=== PATIENT | female | born 1990 | race Two or more races ===

== ENCOUNTER 2018-01-17 23:54 | Emergency (ER) | payer MEDICAID ==
[~2018-01-17] VITALS: Ht 157.5 cm; Wt 77.1 kg
[2018-01-18 01:54] LABS: Urine Pregnacy Test Negative (Negative)
[2018-01-18 01:56] LABS: Urine Bacteria MANY /hpf (None Seen); Urine Blood Negative /uL (Negative); Urine Mucus FEW (None Seen); Urine Specific Gravity 1.021 (1.001-1.035); Urine WBC 4 /hpf (0 - 5)
[2018-01-18 02:03] LABS: Alcohol, Urine < 3.0 mg/dL (0-5); Amphetamine Screen, Urine NEGATIVE (NEGATIVE); Barbiturate Scree,Urine NEGATIVE (NEGATIVE); Benzodiazephine Screen, Urine NEGATIVE (NEGATIVE); Cannabinoid Screen, Urine NEGATIVE (NEGATIVE); Cocaine Screen, Urine NEGATIVE (NEGATIVE); Opiate Scree,Urine NEGATIVE (NEGATIVE); Phencyclidine Screen, Urine NEGATIVE (NEGATIVE)
[2018-01-18 02:16] LABS: Basophils # (auto) 0.1 uL; Basophils % (auto) 1.1 % (0.0-2.0); Eosinophils # (auto) 0.2 uL; Eosinophils % (auto) 2.5 % (0.0-7.0); Hematocrit 38.8 % (36.0-46.0); Hemoglobin 13.1 g/dL (12.2-16.2); Lymphocytes # (auto) 1.8 uL; Lymphocytes % (auto) 19.4 % (10.0-50.0); Mean Corpuscular Hemoglobin 29.6 pg (28.0-32.0); Mean Corpuscular Hgb Conc. 33.9 g/dL (32.0-36.0); Mean Corpuscular Volume 87.5 fL (80.0-100.0); Monocytes # (auto) 0.9 uL; Monocytes % (auto) 9.4 % (0.0-12.0); Neutrophils # (auto) 6.4 uL; Neutrophils % (auto) 67.6 % (37.0-80.0); Nucleated Red Blood Cells % 0.1 %; Platelet Count (auto) 249 10^3/uL (140-450); Red Blood Cells 4.44 10^6/uL (4.0-5.20); Red Cell Distribution Width 12.5 % (11.8-14.3); White Blood Cell 9.5 10^3/uL (4.4-10.8)
[2018-01-18 02:35] LABS: Alanine Aminotransferase 26 U/L (13-56); Anion Gap 9 (5-15); Aspartate Aminotransferase 17 U/L (15-37); BUN/Creatinine Ratio 11.6; Blood Alcohol < 3.0 mg/dL (0-5); Blood Urea Nitrogen 8 mg/dL (7-18); Calcium 8.3 mg/dL (8.5-10.1); Carbon Dioxide 23 mmol/L (21-32); Chloride 108 mmol/L (98-107); GFR African American 132 mL/min; GFR Non-African American 109 mL/min; Glucose 91 mg/dL (74-106); Magnesium 2.2 mg/dL (1.6-2.6); Potassium 3.3 mmol/L (3.5-5.1); Salicylate < 1.7 mg/dL (2.8-20.0); Sodium 140 mmol/L (136-145)
[2018-01-18 02:37] LABS: Alkaline Phosphatase 101 U/L (45-117); Bilirubin, Total 0.2 mg/dL (0.2-1.0); Total Protein 7.5 g/dL (6.4-8.2)
[2018-01-18 02:41] LABS: Acetaminophen < 2.0 ug/mL (10-30)
[2018-01-18 04:12] LABS: Alcohol, Urine < 3.0 mg/dL (0-5); Amphetamine Screen, Urine NEGATIVE (NEGATIVE); Barbiturate Scree,Urine NEGATIVE (NEGATIVE); Benzodiazephine Screen, Urine NEGATIVE (NEGATIVE); Cannabinoid Screen, Urine NEGATIVE (NEGATIVE); Cocaine Screen, Urine NEGATIVE (NEGATIVE); Opiate Scree,Urine NEGATIVE (NEGATIVE); Phencyclidine Screen, Urine NEGATIVE (NEGATIVE)
[2018-01-18] MEDS ORDERED: LORazepam 2MG/ML-1ML VIAL IV ONE (04:15)
[2018-01-18] MEDS ORDERED: SODIUM CHLORIDE 0.9% 1,000 ML IV ONE (04:15)
[2018-01-18 04:31] LABS: Urine Bacteria MANY /hpf (None Seen); Urine Blood Negative /uL (Negative); Urine Mucus FEW (None Seen); Urine WBC 6 /hpf (0 - 5)
[2018-01-18] MEDS ORDERED: CIPROFLOXACIN HCL 500 MG TAB PO ONE (07:45)
[2018-01-18] MEDS ORDERED: POTASSIUM CHL 20 Meq TABLET PO ONE (08:30)
[2018-01-18] MEDS ORDERED: OLANZapine 5 MG TAB PO ONE (08:30)
[2018-01-19] MEDS ORDERED: ACETAMINOPHEN 325 MG TAB PO ONE (17:45)
[2018-01-19] MEDS ORDERED: OLANZapine 5 MG TAB PO SCH (22:00)
[2018-01-20 12:13] VITALS: BP 100/67
== END 2018-01-20 12:17 | disposition short-term general hospital (02) ==
LOC: EDBD 23:54 → ER 23:54
DX: F20.9 Schizophrenia, unspecified (principal); R45.851 Suicidal ideations; F12.10 Cannabis abuse, uncomplicated; F15.10 Other stimulant abuse, uncomplicated; F11.10 Opioid abuse, uncomplicated
CPT/HCPCS: 36415; 80053; 80307; 80320; 80329; 81001; 81025; 83735; 84702; 85025; 96374; 99285; J2060